=== PATIENT | female | born 1980 | race Caucasian/White ===

== ENCOUNTER 2020-01-10 16:30 | Emergency (ER) | payer MEDICAID, SELFPAY ==
[2020-01-10] VITALS (16 sets, daily range): BP systolic 98–145; BP diastolic 65–110; PULSE 55–92; RESP 12–23; TEMP 36.6; O2SAT 85–100
--- NOTE | 2020-01-10 16:30 | DI.RAD_ITS ---
EXAM: XR CHEST 2V PA LATERAL CLINICAL HISTORY: chest pain TECHNIQUE: 2D digital imaging was performed. COMPARISON: No exams were available for comparison FINDINGS: The heart is not enlarged. The lungs are clear and well expanded. No pleural effusion seen. Mediastin al contours appear intact. IMPRESSION: Normal chest. RADIATION DOSE DELIVERED: Total DLP
--- NOTE | 2020-01-10 16:30 | RT.EKG_ITS ---
APPROVED REPORT Exam: Resting ECG Patient Location: E HR:75 bpm ECG Measurements Heart Rate 75 AXIS CA 142 P 57 QRSd 86 QRS 40 QT 377 T 25 QTc 421 Conclusion Sinus rhythm...normal P axis, V-rate 60- 99
--- NOTE | 2020-01-10 16:40 | W.ED.GENAD ---
Discharge Plan Disposition Patient Disposition: HOME Condition: Stable Discharge Details Clinical Impression: Epigastric abdominal pain Primary Care Provider: Betty Bella ED Provider: Anna Pena Home Meds and New Rx's Prescriptions: New omeprazole 40 mg capsule,delayed release(DR/EC) 40 mg PO DAILY Qty: 30 RF: 0 Discharge Instructions Instructions: Epigastric Pain (ED) Additional Instructions: Take omeprazole 40 mg daily Use albuterol inhaler 2 puffs every 4 hours as needed for wheezing shortness of breath or cough Follow-up with PCP for further outpatient work-up as needed Referrals: Betty Bella, [employer]N [Primary Care Provider] - Medical Decision Making 5 days of chest pain, right sided, unlikely cardiac, EKG is NSR with no acute st segment changes. chest xray to r/o pneumothorax,pneumonia, labs r/o pancreatitis, trop negative. normal cbc. Other labs reviewed and unremarkable she is given a GI cocktail and IV Protonix as her symptoms are most likely GI. She is further given Toradol 30 mg IV and acetaminophen 1000 mg. She is a every day smoker with a history of asthma her chest x-ray is unremarkable and her lungs are clear to auscultation. I will dispense an albuterol inhaler for home use as she currently has no PCP and no inhaler at home. She will be advised to take omeprazole 40 mg daily and to follow-up with GI for possible further outpatient work-up Medical Records Medical records reviewed: Yes I reviewed the patient's medical records. Lab Data Lab results reviewed: Yes I reviewed the patient's lab results. Lab results narrative: Laboratory Tests Range/Units 01/10/20 01/10/20 01/10/20 16:42 16:42 16:42 WBC (4.4-10.8) 10^3/uL 5.80 RBC (3.93-5.22) 10^6/uL 5.05 Hgb (11.2-15.7) g/dL 15.9 H Hct (36.0-46.0) % 48.0 H MCV (80-95) fL 95.0 MCH (27.0-33.0) pg 31.5 MCHC (32.0-36.0) % 33.1 RDW (11.7-14.6) % 11.8 Plt Count (130-400) 10^3/uL 191 MPV (8.0-11.0) fL 9.9 Immature Gran % 0.2 Neutrophils % 53.8 Lymphocytes % 35.3 Monocytes % 5.0 Eosinophils % 5.0 Basophils % 0.7 Nucleated RBC % % 0 Absolute Neutrophils (1.2-6.7) 10^3/uL 3.12 Absolute Lymphocytes (1.2-3.4) 10^3/uL 2.05 Absolute Monocytes (0.1-0.8) 10^3/uL 0.29 Absolute Eosinophils (0.0-0.7) 10^3/uL 0.29 Absolute Basophils (0.0-0.2) 10^3/uL 0.04 D-Dimer (<500) ng/mlFEU 180 Sodium (136-145) mmol/L 139 Potassium (3.5-5.1) mmol/L 3.5 Chloride (98-107) mmol/L 106 Carbon Dioxide (21.0-32.0) mmol/L 27.9 Anion Gap (3-11) mmol/L 5.1 BUN (7-18) mg/dL 11 Creatinine (0.55-1.02) mg/dL 0.88 Estimated GFR/1.73 m2 (mL/min/1.73m2) >= 60.00 Glucose (74-106) mg/dL 108 H Calcium (8.5-10.1) mg/dL 8.7 Magnesium (1.8-2.4) mg/dL 2.3 Total Bilirubin (0.2-1.0) mg/dL 0.4 AST (15-37) U/L 14 L ALT (14-59) U/L 20 Alkaline Phosphatase (46-116) U/L 52 Troponin I (<0.06) ng/mL < 0.05 Total Protein (6.4-8.2) g/dL 7.2 Albumin (3.4-5.0) g/dL 3.7 Lipase (73-393) U/L 50 HPI General Date/Time Provider Initiated Documentation: 01/10/20 16:38. Information obtained by: patient. HPI Narrative: presents with 5 days of right sided chest pain, radiates up into her jaw, she appears anxious, no fever or cough, denies alcohol or drug use. did not take any over the counter. Related Data Home Medications Medication Instructions Recorded Confirmed omeprazole 40 mg PO DAILY #30 cap 01/10/20 Previous Rx's Medication Instructions Recorded omeprazole 40 mg PO DAILY #30 cap 01/10/20 Allergies Allergy/AdvReac Type Severity Reaction Status Date / Time No Known Allergies Allergy Unverified 01/10/20 16:39 General Stated Complaint: Chest Pain IBETH: 2 Review of Systems Constitutional Constitutional: Denies fever(s) Cardiovascular Cardiovascular: Reports chest pain, Denies rapid heart rate, Denies edema and Denies dyspnea Respiratory Respiratory: Reports cough, Reports pain with cough and Denies dyspnea Gastrointestinal Gastrointestinal: Denies constipation, Reports heartburn, Denies diarrhea, Denies nausea and Denies vomiting Musculoskeletal Musculoskeletal: Denies myalgias Integumentary/Breasts Skin/Breast: Denies lesions and Denies rash [facility] Social History Smoking/Tobacco Use Status: Current every day Smoking risk assessment performed?: Yes Drug use: Never Substance use type: does not use Do you feel safe at home: Yes Do you feel safe in your relationship?: Yes Exam Const General: cooperative, no acute distress, anxious and disheveled Nutritional Appearance: average body habitus Orientation: alert, awake and oriented x3 [facility] Head: normal to inspection, normocephalic and atraumatic Mouth: oral mucosae normal Chest Chest: normal inspection of the chest Resp Effort & Inspection: normal respiratory effort Auscultation: clear to auscultation bilaterally, no rhonchi and no wheezes Cardio Rate: regular rate Rhythm: regular rhythm GI Inspection: normal to inspection Palpation: soft Auscultation: normal bowel sounds Back/Spine/Pelvis Back: no CVA tenderness Skin General skin exam: no rashes or lesions noted Neuro General: patient alert, patient awake, patient oriented x3 and no focal motor deficits Extrem General: normal to inspection and full ROM Course Vital Signs Vital signs: Vital Signs Temperature 36.6 C 01/10/20 16:33 Pulse 87 01/10/20 16:33 Respiratory Rate 19 01/10/20 16:33 Blood Pressure 145/110 H 01/10/20 16:33 Pulse Oximetry 100 01/10/20 16:33 Temperature 36.6 C 01/10/20 16:33 Temperature Source Temporal Artery Scan 01/10/20 16:33 Pulse 87 01/10/20 16:33 Respiratory Rate 19 12/04/20 16:33 Blood Pressure 145/110 H 01/10/20 16:33 Blood Pressure Position Sitting 01/10/20 16:33 Pulse Oximetry 100 01/10/20 16:33 Oxygen Delivery Method Room Air 01/10/20 16:33 Oxygen Flow Rate 0 01/10/20 16:33 Pain Level 7 01/10/20 16:33
[2020-01-10] MEDS: Normal Saline 1,000 ML 1000 ML IV (16:46)
[2020-01-10] MEDS: Pantoprazole 40 MG VIAL IVP (16:50)
[2020-01-10 16:51] LABS: Abs Immature Grans 0.01 10^3/uL (0.0-0.06); Absolute Basophil Count 0.04 10^3/uL (0.0-0.2); Absolute Eosinophil Count 0.29 10^3/uL (0.0-0.7); Absolute Lymphocyte Count 2.05 10^3/uL (1.2-3.4); Absolute Monocyte Count 0.29 10^3/uL (0.1-0.8); Absolute Neutrophil Count 3.12 10^3/uL (1.2-6.7); Basophils % 0.7; HGB 15.9 g/dL (11.2-15.7); Immature Grans % 0.2; Lymphocytes % 35.3; MCH 31.5 pg (27.0-33.0); MCHC 33.1 % (32.0-36.0); MPV 9.9 fL (8.0-11.0); Neutrophils % 53.8; Nucleated RBC 0 %; Platelet Count 191 10^3/uL (130-400); RBC 5.05 10^6/uL (3.93-5.22); RDW 11.8 % (11.7-14.6); RDW-SD 41.5 fL
[2020-01-10 17:08] LABS: ALT 20 U/L (14-59); AST 14 U/L (15-37); Albumin 3.7 g/dL (3.4-5.0); Alkaline Phosphatase 52 U/L (46-116); Anion Gap 5.1 mmol/L (3-11); BUN 11 mg/dL (7-18); Bilirubin, Total 0.4 mg/dL (0.2-1.0); CO2 27.9 mmol/L (21.0-32.0); CREATININE 0.88 mg/dL (0.55-1.02); Calcium 8.7 mg/dL (8.5-10.1); Chloride 106 mmol/L (98-107); Glucose 108 mg/dL (74-106); Lipase 50 U/L (73-393); Magnesium 2.3 mg/dL (1.8-2.4); Potassium 3.5 mmol/L (3.5-5.1); Sodium 139 mmol/L (136-145); Total Protein 7.2 g/dL (6.4-8.2); Troponin I < 0.05 ng/mL (<0.06)
[2020-01-10 17:23] LABS: D-Dimer 180 ng/mlFEU (<500)
--- NOTE | 2020-01-10 17:29 | DI.VRAD_ITS ---
PROCEDURE INFORMATION: Exam: XR Chest, 2 Views Exam date and time: 01/10/2020 4:41 PM Age: 39 years old Clinical indication: Other: Chest pain TECHNIQUE: Imaging protocol: XR of the chest Views: 2 views. COMPARISON: No relevant prior studies available. FINDINGS: Lungs: The lungs are clear. There is no pulmonary vascular congestion. Pleural space: No layering pleural effusions are identified. Heart/Mediastinum: Cardiomediastinal silhouette is within normal limits. Bones/joints: There are multilevel mild degenerative changes throughout the thoracic spine. There is mild anterior wedging of a single lower thoracic vertebra which appears chronic. IMPRESSION: No active cardiopulmonary disease identified. Dictated and Authenticated by: Patrick Kumar MD. Ordering:REECE Castillo MD
[2020-01-10] MEDS: Acetaminophen 500 MG TAB 1000 MG PO (17:53)
[2020-01-10] MEDS: Albuterol HFA 8 GM 60 PUFF INH IH (17:53)
[2020-01-10] MEDS: Ketorolac 30 MG/ML VIAL IVP (17:54)
== END 2020-01-10 18:05 | disposition home or self-care (01) ==
PROVIDERS: Emergency Provider Nurse Practitioner Acute Care
DX: R10.13 Epigastric pain (principal); F17.210 Nicotine dependence, cigarettes, uncomplicated
CPT/HCPCS: 80053; 83690; 93005; 96361; 96374; 96375; 99285; 71046; 83735; 84484; 85025; 85379; 93010; J1885

== ENCOUNTER 2020-03-07 10:37 | Emergency (ER) | payer MEDICAID, SELFPAY ==
[2020-03-07 10:43] VITALS: BP 138/76; PULSE 82; RESP 20; TEMP 36.3; O2SAT 100
--- NOTE | 2020-03-07 10:52 | ED.GENADUL_ITS ---
Discharge Plan Disposition Patient Disposition: HOME Condition: Stable Discharge Details Clinical Impression: Pharyngitis Primary Care Provider: Betty Bella ED Provider: Brenda Vieira Home Meds and New Rx's Prescriptions: No Action fluticasone propion-salmeterol [Advair Diskus] 250-50 mcg/dose blister with device 1 inh inhalation BID RF: 0 vitamin B complex [B Complex-Vitamin B12] Tablet 1 tab PO DAILY RF: 0 acetaminophen [Tylenol] 325 mg tablet 650 mg PO Q6H PRNRF: 0 valacyclovir 1 gram tablet 1,000 mg PO TID RF: 0 triamcinolone acetonide 0.5 % cream 1 applic topical BID RF: 0 epinephrine 0.3 mg/0.3 mL auto-injector 0.3 mg IM ONCE RF: 0 omeprazole 40 mg capsule,delayed release(DR/EC) 40 mg PO DAILY Qty: 30 RF: 0 Discharge Instructions Instructions: Pharyngitis (ED) Additional Instructions: Gargle with warm salt water three times a day. Consider contacting Covid testing tent to be tested for Covid. Follow up with primary care provider in 3-5 days. Return to ED sooner if any worsening or concerns. Increase oral fluids. Please take Tylenol or Ibuprofen with food every 4-6 hours as needed for pain and swelling. Stand Alone Forms: Work Release Referrals: Betty Bella, [employer] REL[employer] INTERN [Primary Care Provider] - Medical Decision Making 39-year-old female presents to the ED with chief complaint of throat pain x3 days. Patient states that she has had pain swallowing, left-sided cervical lymphadenopathy, she is a smoker. She does report a nonproductive cough. Denies fever or chills. She states that she has had strep throat in the past and this feels similar. On initial exam posterior oropharynx is erythemic, tonsils are absent, no exudate noted. She is speaking in clear full sentences, lung sounds are clear bilaterally to auscultation. She has been trying [id number] cold and flu medications with little to no relief. Initial rapid strep swab negative. Due to patient's symptoms and lymphadenopathy do feel that treatment with antibiotics is appropriate at this time. Discussed pills versus injection, patient opted for IM injection. I did discuss home care including gargling with warm salt water three times a day, verbalized understanding. Patient received Bicillin 1,200,000 units IM was observed for approximately 15 to 20 minutes after injection. Discussed home care including gargling with warm salt water and taking Tylenol and ibuprofen. Patient was hemodynamically stable throughout stay. HPI General Mode of arrival: ambulatory . Date/Time Provider Initiated Documentation: 03/07/20 10:38 . Limitations to Documentation: no limitations . Information obtained by: patient . HPI Narrative: 39-year-old female presents to the ED with chief complaint of throat pain x3 days. Patient states that she has had pain swallowing, left-sided cervical lymphadenopathy, she is a smoker. She does report a nonproductive cough. Denies fever or chills. She states that she has had strep throat in the past and this feels similar. On initial exam posterior oropharynx is erythemic, tonsils are absent, no exudate noted. She is speaking in clear full sentences, lung sounds are clear bilaterally to auscultation. She has been trying [id number] cold and flu medications with little to no relief. Related Data Home Medications Medication Instructions Recorded Confirmed omeprazole 40 mg PO DAILY #30 cap 01/10/20 03/07/20 acetaminophen 325 mg tablet 650 mg PO Q6H PRN tab 02/17/20 03/07/20 fluticasone 250 mcg-salmeterol 50 1 inh INHALATION BID 02/17/20 03/07/20 mcg/dose blistr powdr for inhalation triamcinolone acetonide 0.5 % 1 applic TOPICAL BID 02/17/20 03/07/20 topical cream valacyclovir 1 gram tablet 1,000 mg PO TID 02/17/20 03/07/20 vitamin B complex 1 tab PO DAILY 02/17/20 03/07/20 epinephrine 0.3 mg/0.3 mL 0.3 mg IM ONCE 02/20/20 03/07/20 injection, auto-injector Previous Rx's Medication Instructions Recorded omeprazole 40 mg PO DAILY #30 cap 01/10/20 Allergies Allergy/AdvReac Type Severity Reaction Status Date / Time bee venom protein (honey bee) Allergy Unknown Unverified 03/07/20 10:44 cat dander Allergy Unknown Unverified 03/07/20 10:44 hornet venom Allergy Unknown Unverified 03/07/20 10:44 General Stated Complaint: Sorethroat IBETH: 4 Review of Systems Narrative: Constitutional: Negative for weight loss, alert and oriented, well groomed, normal body habitus, appears comfortable. HEENT: Denies trauma, headaches, blurry vision, nasal discharge. Positive sore throat, pain with swallowing. Chest: Denies chest pain, palpitations, irregular rhythm, hypertension. Respiratory: Denies Shortness of breath, hemoptysis. Positive nonproductive cough. GI: Denies abdominal pain, nausea, vomiting, diarrhea, constipation. : Denies dysuria, hematuria, flank pain, rectal bleeding. Neuro: Denies dizziness, blurry vision, weakness, syncope, headache or facial numbness. Hematologic: Denies easy bruising, intolerance to heat or cold, hair loss. [facility] Medical History Abdominal pain Agoraphobia Anemia Arthritis Asthma Bipolar 2 disorder Cyst of Bartholin's gland duct Depressive disorder Eustachian tube disorder Fatty liver RIOS (generalized anxiety disorder) GERD (gastroesophageal reflux disease) Hearing loss in right ear Herpes zoster (~08/01/18) History of eating disorder Joint pain Migraine Obesity Pain in both feet PTSD (post-traumatic stress disorder) Sleep disorder Urinary incontinence Surgical History H/O gastric bypass (~08/11/16) H/O hernia repair (~10/06/17) History of endometrial ablation (~02/05/13) History of eye surgery (~02/06/13) laser surgery for detached retina (L) eye History of hand surgery (~04/06/11) removal of ganglion cyst from hand: left wrist and right wrist History of liver biopsy (~08/11/16) wedge BX History of tubal ligation (~02/07/04) Hx of cholecystectomy (~10/06/17) Social History Smoking/Tobacco Use Status: Current every day Smoking risk assessment performed?: Yes Drug use: Rarely Substance use type: marijuana Do you feel safe at home: Yes Do you feel safe in your relationship?: Yes Exam Narrative Exam Narrative: Constitutional: Alert and oriented x3. Appears stated age. Normal body habitus. Head: Normocephalic, no trauma. Eyes: Pupils PERRLA, Red reflex noted, EOM's intact. Eyelids symmetrical without lesions, discharge, or swelling. ENT: Bilateral TM's WNL, External ear normal to inspection, no mastoid TTP, swelling, or erythema, Nasal turbinates WNL, no nasal discharge. Normal dentition, Posterior pharynx erythemic, no exudate visualized, positive cervical lymphadenopathy on left. Tonsils are absent. Chest: RRR, Normal S1, S2, distal pulses intact. Resp: Lungs clear to auscultation bilaterally, no wheezes, rales, or rhonchi. Musculoskeletal: Normal gait, 5/5 strength to all four extremities. Skin: No suspicious rashes or lesions. Capillary refill less than 2 sec. Neurologic: Cranial nerves II-XII intact. Alert and oriented x 3. DTR's intact. Hematologic/Lymphatic: No ecchymosis. Course Vital Signs Vital signs: Vital Signs Temperature 36.3 C L 03/07/20 10:43 Pulse 82 03/07/20 10:43 Respiratory Rate 20 03/07/20 10:43 Blood Pressure 138/76 03/07/20 10:43 Pulse Oximetry 100 03/07/20 10:43 Temperature 36.3 C L 03/07/20 10:43 Temperature Source Skin 03/07/20 10:43 Pulse 82 03/07/20 10:43 Respiratory Rate 20 03/07/20 10:43 Respiratory Effort Non-Labored 03/07/20 10:45 Blood Pressure 138/76 03/07/20 10:43 Blood Pressure Position Sitting 03/07/20 10:43 Pulse Oximetry 100 03/07/20 10:43 Oxygen Delivery Method Room Air 03/07/20 10:43 Oxygen Flow Rate 0 03/07/20 10:43 Pain Level 8 03/07/20 10:43 Lab/Test Results Lab/Test Results: 03/07/20 10:51 Tonsil - Not Specified Streptococcus Screen (EZEQUIEL) - Pending POC Strep Test-JOSEPH(Rapid) Start: 03/07/20 10:38 Freq: .Rapid Strep Test Status: Active Protocol: Document 03/07/20 10:51 TB (Rec: 03/07/20 10:51 TB [id number]) Strep test-JOSEPH(Rapid)-POC POC-Strep test-JOSEPH (Rapid) Negative POC-Strep test-JOSEPH (Rapid) Negative
[2020-03-07 11:27] VITALS: PULSE 62; RESP 18; TEMP 36.6; O2SAT 99
== END 2020-03-07 11:25 | disposition home or self-care (01) ==
PROVIDERS: Emergency Provider Registered Nurse Emergency
DX: R59.0 Localized enlarged lymph nodes (principal); J02.9 Acute pharyngitis, unspecified
CPT/HCPCS: 87880; 96372; 99284; 87081; 99283; J0561

== ENCOUNTER 2020-03-10 20:13 | Outpatient (REF) | payer MEDICAID, SELFPAY ==
[2020-03-12 14:02] LABS: COVID-19 RT-PCR UVMMC Result Negative (Negative)
== END 2020-03-10 20:14 | disposition home or self-care (01) ==
LOC: NCHCN 20:13
PROVIDERS: Visit Provider Family Medicine
DX: J02.9 Acute pharyngitis, unspecified (principal)
CPT/HCPCS: U0003; 87070

== ENCOUNTER 2020-04-18 12:11 | Emergency (ER) | payer MEDICAID, SELFPAY ==
[2020-04-18 12:22] VITALS: BP 157/97; PULSE 78; RESP 20; TEMP 36.3; O2SAT 98
--- NOTE | 2020-04-18 12:30 | RT.EKG_ITS ---
APPROVED REPORT Exam: Resting ECG Patient Location: E HR:76 bpm ECG Measurements Heart Rate 76 AXIS KS 140 P 58 QRSd 86 QRS 58 QT 394 T 31 QTc 442 Conclusion Sinus rhythm...normal P axis, V-rate 60- 99 I have reviewed and interpreted ECG and agree with software generated interpretation.
--- NOTE | 2020-04-18 12:39 | W.ED.GENAD ---
Discharge Plan Disposition Patient Disposition: HOME Condition: Stable Discharge Details Clinical Impression: Chronic sore throat, Chronic cough, Current smoker Primary Care Provider: Betty Bella ED Provider: Elva Kurtz Home Meds and New Rx's Prescriptions: New amoxicillin-pot clavulanate [Augmentin] 875-125 mg tablet 1 tab PO BID 7 Days Qty: 14 RF: 0 prednisone 20 mg tablet See Rx Instructions .ROUTE .COMPLEX Qty: 12 RF: 0 albuterol sulfate 90 mcg/actuation aerosol powdr breath activated 2 inh IH Q6H PRN (Reason: shortness of breath or wheezing) Qty: 1 RF: 0 benzonatate [Tessalon Perles] 100 mg capsule 100 mg PO TID PRN (Reason: cough) Qty: 14 RF: 0 Continued vitamin B complex [B Complex-Vitamin B12] Tablet 1 tab PO DAILY RF: 0 acetaminophen [Tylenol] 325 mg tablet 650 mg PO Q6H PRNRF: 0 epinephrine 0.3 mg/0.3 mL auto-injector 0.3 mg IM ONCE RF: 0 cholecalciferol (vitamin D3) 50 mcg (2,000 unit) capsule 50 mcg PO DAILY RF: 0 hydroxyzine pamoate [Vistaril] 25 mg capsule 25 mg PO QHS PRNRF: 0 fluticasone propion-salmeterol [Advair Diskus] 250-50 mcg/dose blister with device 1 inh inhalation BID Qty: 60 RF: 0 albuterol sulfate [ProAir HFA] 90 mcg/actuation HFA aerosol inhaler 2 puff inhalation Q6H PRN (Reason: shortness of breath or wheezing) Qty: 8.5 RF: 3 omeprazole 40 mg capsule,delayed release(DR/EC) 40 mg PO DAILY Qty: 30 RF: 0 Discharge Instructions Instructions: How to Stop Smoking (ED), Pharyngitis (ED), Chronic Cough (ED) Additional Instructions: Your chest x-ray did not show any abnormal findings. Your persistent symptoms may be due to a viral process and/or prolonged secondary to smoking. You can also have a chronic cough and sore throat from allergies or GERD. If your symptoms do not improve with the medications given today, follow-up with your primary care doctor for reevaluation and consideration for referral to an frit burner for to GI or surgery for an upper endoscopy. Drink plenty of fluids and get plenty of rest. Alternate tylenol and motrin as needed and directed for pain. Your prescriptions have been sent electronically to your pharmacy. Call the pharmacy to make sure your prescriptions are ready before pickup. Take the prescriptions as directed. Follow-up with your primary care doctor in 1 week. Return to the emergency department with any worsening or new concerning symptoms. Discharge Data Discharge Physician: Elva Kurtz Medical Decision Making 39-year-old female with a history of bipolar disorder, PTSD, GERD presents for chronic sore throat and cough for the past 2 months. She appears comfortable and nontoxic. No respiratory distress. Afebrile. Normal oxygen saturation. Rapid strep negative. Discussed with patient at length that her chronic symptoms may be related to her smoking but could also consider GERD or allergies. Also discussed that she could have an acute infection on top of her chronic symptoms. Advised that she quit smoking as this will delay her resolution of symptoms. Her lungs are clear without evidence of wheezing. Her oropharynx is minimally erythematous but without exudates. Her right anterior chest is tender to palpation and this appears more musculoskeletal. EKG done by nurse on arrival and noted a rate of 76, sinus, no STEMI, nondiagnostic. Overall suspect her presentation may be a prolonged or recurrent viral illness secondary to her smoking. Also consider another form of strep. Throat culture sent. She was also referred for chest x-ray which is negative. Considering patient's history of smoking, will treat with antibiotics and steroids. Also given albuterol inhaler and Tessalon Perles for home. Advised to follow up with the primary care doctor for re-evaluation. Usual and customary return precautions given prior to discharge. Medical Records Medical records reviewed: Yes I reviewed the patient's medical records. Imaging Data Radiologic Study: Radiologist's impression: XR Chest Exam date and time: 04/18/2020 1:11 PM Age: 39 years old Clinical indication: Other: Chronic cough, R/O acute disease TECHNIQUE: Imaging protocol: XR of the chest Views: 2 views. COMPARISON: CR XR CHEST 2V PA LATERAL 01/10/2020 5:19 PM FINDINGS: Lungs: Unremarkable. No consolidation. Pleural spaces: Unremarkable. No pleural effusion. No pneumothorax. Heart/Mediastinum: Unremarkable. No cardiomegaly. Bones/joints: Unremarkable. IMPRESSION: No acute findings. HPI General Mode of arrival: ambulatory. Date/Time Provider Initiated Documentation: 04/18/20 12:32. Limitations to Documentation: no limitations. Information obtained by: patient. HPI Narrative: Patient is a 39-year-old female with a history of bipolar disorder, PTSD, GERD who presents for chronic sore throat and cough for the past 2 months. Was diagnosed and treated with strep 2 months ago by the ED as well as her primary care doctor. She states her symptoms never fully improved and she has had continued sore throat and dry cough. She states she only has right-sided chest pain with coughing. She denies any significant shortness of breath. She states her main complaint is her sore throat that is worse with coughing. She denies any known fever, abdominal pain, recent travel or recent known sick contacts. Related Data Home Medications Medication Instructions Recorded Confirmed omeprazole 40 mg PO DAILY #30 cap 01/10/20 04/18/20 acetaminophen 325 mg tablet 650 mg PO Q6H PRN tab 02/17/20 04/18/20 vitamin B complex 1 tab PO DAILY 02/17/20 04/06/20 epinephrine 0.3 mg/0.3 mL 0.3 mg IM ONCE 02/20/20 04/18/20 injection, auto-injector albuterol sulfate 90 mcg/actuation 2 puff INHALATION Q6H PRN #8.5 g 04/06/20 04/18/20 aerosol inhaler cholecalciferol (vitamin D3) 50 50 mcg PO DAILY 04/06/20 04/06/20 mcg (2,000 unit) capsule fluticasone 250 mcg-salmeterol 50 1 inh INHALATION BID #60 ea 04/06/20 04/18/20 mcg/dose blistr powdr for inhalation hydroxyzine pamoate 25 mg capsule 25 mg PO QHS PRN 04/06/20 04/18/20 albuterol sulfate 2 inh IH Q6H PRN #1 each 04/18/20 amoxicillin-pot clavulanate 1 tab PO BID 7 Days #14 tab 04/18/20 [Augmentin] benzonatate [Tessalon Perles] 100 mg PO TID PRN #14 cap 04/18/20 prednisone See Rx Instructions .ROUTE 04/18/20 .COMPLEX #12 tab Previous Rx's Medication Instructions Recorded omeprazole 40 mg PO DAILY #30 cap 01/10/20 albuterol sulfate 90 mcg/actuation 2 puff INHALATION Q6H PRN #8.5 g 04/06/20 aerosol inhaler fluticasone 250 mcg-salmeterol 50 1 inh INHALATION BID #60 ea 04/06/20 mcg/dose blistr powdr for inhalation albuterol sulfate 2 inh IH Q6H PRN #1 each 04/18/20 amoxicillin-pot clavulanate 1 tab PO BID 7 Days #14 tab 04/18/20 [Augmentin] benzonatate [Tessalon Perles] 100 mg PO TID PRN #14 cap 04/18/20 prednisone See Rx Instructions .ROUTE 04/18/20 .COMPLEX #12 tab Allergies Allergy/AdvReac Type Severity Reaction Status Date / Time bee venom protein (honey bee) Allergy Unknown Verified 04/18/20 12:25 cat dander Allergy Unknown Verified 04/18/20 12:25 hornet venom Allergy Unknown Verified 04/18/20 12:25 General Stated Complaint: RespSymp IBETH: 4 Review of Systems All systems reviewed & are unremarkable except as noted in HPI and below Constitutional Constitutional: Reports as per HPI, Denies chills and Denies fever(s) Eyes Eyes: Denies blurry vision ENT Ears, Nose, Mouth, and Throat: Denies dizziness, Reports sore throat and Denies throat swelling Cardiovascular Cardiovascular: Reports chest pain and Denies dyspnea Respiratory Respiratory: Reports cough and Denies dyspnea Gastrointestinal Gastrointestinal: Denies abdominal pain, Denies diarrhea and Denies vomiting Genitourinary Genitourinary: Denies hematuria and Denies dysuria Musculoskeletal Musculoskeletal: Denies back pain and Denies numbness Integumentary/Breasts Skin/Breast: Denies lesions and Denies rash Neurologic Neurologic: Denies dizziness, Denies localized weakness and Denies numbness Allergic/Immunologic Allergic/Immunologic: Denies throat swelling [facility] Medical History Abdominal pain Agoraphobia Anemia Arthritis Asthma Bipolar 2 disorder Cyst of Bartholin's gland duct Depressive disorder Eustachian tube disorder Fatty liver RIOS (generalized anxiety disorder) GERD (gastroesophageal reflux disease) Hearing loss in right ear Herpes zoster (~08/01/18) History of eating disorder Joint pain Migraine Obesity Pain in both feet PTSD (post-traumatic stress disorder) Sleep disorder Urinary incontinence Surgical History H/O gastric bypass (~08/11/16) H/O hernia repair (~10/06/17) History of endometrial ablation (~02/05/13) History of eye surgery (~02/06/13) laser surgery for detached retina (L) eye History of hand surgery (~04/06/11) removal of ganglion cyst from hand: left wrist and right wrist History of liver biopsy (~08/11/16) wedge BX History of tubal ligation (~02/07/04) Hx of cholecystectomy (~10/06/17) Social History Smoking/Tobacco Use Status: Current every day Smoking risk assessment performed?: Yes Drug use: Rarely Substance use type: marijuana Do you feel safe at home: Yes Do you feel safe in your relationship?: Yes Exam Const General: cooperative, healthy appearing and no acute distress HENMT Head: normal to inspection Ears: hearing grossly normal bilaterally, external ears normal and TM's normal bilaterally General nose exam: external nose normal Mouth: oral mucosae normal Throat: uvula midline and posterior oropharynx abnormal erythema (minimal ); no edema and no exudates Eyes General: appearance normal, both eyes and all related structures Neck Neck: normal visual inspection Lymphatic: lymphadenopathy (L anterior cervical ) Chest Chest: tenderness (R anterior chest) Resp Effort & Inspection: normal respiratory effort and able to speak in complete sentences Auscultation: clear to auscultation bilaterally Cardio Rate: regular rate Rhythm: regular rhythm Skin General skin exam: no rashes or lesions noted Neuro General: patient alert, patient awake and patient oriented x3 Motor: muscle tone normal throughout Extrem General: normal to inspection and full ROM Psych Appearance: grossly normal Affect: normal affect Course Vital Signs Vital signs: Vital Signs Temperature 97.3 F L 04/18/20 12:22 Pulse 78 04/18/20 12:22 Respiratory Rate 20 04/18/20 12:22 Blood Pressure 157/97 H 04/18/20 12:22 Pulse Oximetry 98 04/18/20 12:22 Temperature 97.3 F L 04/18/20 12:22 Temperature Source Skin 04/18/20 12:22 Pulse 78 04/18/20 12:22 Respiratory Rate 20 04/18/20 12:22 Respiratory Effort Non-Labored 04/18/20 12:29 Blood Pressure 157/97 H 04/18/20 12:22 Blood Pressure Position Sitting 04/18/20 12:22 Pulse Oximetry 98 04/18/20 12:22 Oxygen Delivery Method Room Air 04/18/20 12:22 Oxygen Flow Rate 0 04/18/20 12:22 Pain Level 9 04/18/20 12:22
--- NOTE | 2020-04-18 13:00 | DI.RAD_ITS ---
EXAM: XR CHEST 2V PA LATERAL CLINICAL HISTORY: chronic cough, r/o acute disease TECHNIQUE: 2D digital imaging was performed. COMPARISON: CR,XR XR CHEST 2V PA LATERAL from 01/10/2020 FINDINGS: The heart is not enlarged. The lungs are clear and well expanded. No pleural effusion seen. Mediastin al contours appear intact. IMPRESSION: Normal chest. RADIATION DOSE DELIVERED: Total DLP
[2020-04-18] MEDS: predniSONE 20 MG TAB 60 MG PO (13:44)
[2020-04-18] MEDS: Ketorolac 60 MG/2 ML VIAL IM (13:45)
[2020-04-18] MEDS: Albuterol/Ipratropium 3 ML UPD VIAL UPD (13:46)
--- NOTE | 2020-04-18 14:09 | DI.VRAD_ITS ---
PROCEDURE INFORMATION: Exam: XR Chest Exam date and time: 04/18/2020 1:11 PM Age: 39 years old Clinical indication: Other: Chronic cough, R/O acute disease TECHNIQUE: Imaging protocol: XR of the chest Views: 2 views. COMPARISON: CR XR CHEST 2V PA LATERAL 01/10/2020 5:19 PM FINDINGS: Lungs: Unremarkable. No consolidation. Pleural spaces: Unremarkable. No pleural effusion. No pneumothorax. Heart/Mediastinum: Unremarkable. No cardiomegaly. Bones/joints: Unremarkable. IMPRESSION: No acute findings. Dictated and Authenticated by: Pilo Gilmore MD. Ordering:LORIE Stevenson MD
[2020-04-18 14:43] VITALS: BP 120/66; PULSE 60; RESP 16; TEMP 36.5; O2SAT 97
== END 2020-04-18 14:57 | disposition home or self-care (01) ==
PROVIDERS: Emergency Provider Physician Assistant
DX: J31.2 Chronic pharyngitis (principal); R05 Cough; F17.210 Nicotine dependence, cigarettes, uncomplicated; R07.81 Pleurodynia
CPT/HCPCS: 87880; 93005; 94640; 96372; 99284; 71046; 87081; 93010; J1885; J7512; J7620

== ENCOUNTER 2020-04-21 22:22 | Outpatient (REF) | payer MEDICAID, SELFPAY ==
[2020-04-21 21:15] LABS: Abs Immature Grans 0.03 10^3/uL (0.0-0.06); Absolute Basophil Count 0.02 10^3/uL (0.0-0.2); Absolute Lymphocyte Count 1.48 10^3/uL (1.2-3.4); Absolute Monocyte Count 0.33 10^3/uL (0.1-0.8); Basophils % 0.2; HCT 44.6 % (36.0-46.0); HGB 14.7 g/dL (11.2-15.7); Immature Grans % 0.3; Lymphocytes % 16.9; MCH 32.2 pg (27.0-33.0); MCV 97.8 fL (80-95); MPV 10.4 fL (8.0-11.0); Monocytes % 3.8; Neutrophils % 78.8; Nucleated RBC 0 %; Platelet Count 239 10^3/uL (130-400); RBC 4.56 10^6/uL (3.93-5.22); RDW 12.4 % (11.7-14.6); RDW-SD 44.6 fL; WBC 8.76 10^3/uL (4.4-10.8)
[2020-04-21 21:26] LABS: Mono Screening Negative (Negative)
[2020-04-23 13:16] LABS: COVID-19 RT-PCR UVMMC Result Negative (Negative)
== END 2020-04-21 22:23 | disposition home or self-care (01) ==
LOC: LBN 22:22
PROVIDERS: Visit Provider Nurse Practitioner Family
DX: J02.9 Acute pharyngitis, unspecified (principal); R59.0 Localized enlarged lymph nodes; Z20.822 Contact with and (suspected) exposure to COVID-19
CPT/HCPCS: U0003; 85025; 86308

== ENCOUNTER 2020-05-07 02:17 | Outpatient (CLI) | payer MEDICAID, SELFPAY ==
--- NOTE | 2020-05-07 08:15 | DI.US_ITS ---
EXAM: US SOFT TISSUE HEAD OR NECK CLINICAL HISTORY: enlarged lymph nodes, R59.0, CERVICAL LYMPHADENOPATHY. TECHNIQUE: Ultrasound was performed using standard protocol. COMPARISON: No exams were available for comparison FINDINGS: Sonographic assessment utilizing grayscale and color Doppler imaging was performed and targeted to th e area of clinical concern. Images submitted are of the left side of the neck. There are multiple slightly prominent lymph nodes in the area of concern. Largest of these measures 2.4 cm x 0.5 cm x 1.7 cm. Cortical thickness of these lymph nodes is upper normal. No abnormal flu id collection. IMPRESSION: Multiple slightly lymph nodes in left side of the neck. There are no images of the right-side of the neck. DATA REPOSITORY:
== END 2020-05-07 02:37 ==
PROVIDERS: Visit Provider Nurse Practitioner Family
DX: R59.0 Localized enlarged lymph nodes (principal)
CPT/HCPCS: 76536

== ENCOUNTER 2020-05-18 02:37 | Outpatient (CLI) | payer MEDICAID, SELFPAY ==
--- NOTE | 2020-05-18 12:22 | DI.MAMMO_ITS ---
EXAM: MG MAMMO SCREENING CLINICAL HISTORY: screening,Z12.39. TECHNIQUE: Bilateral full field digital CC and MLO mammographic images were obtained with 3D tomosyn thesis and utilizing computer aided detection (CAD). COMPARISON: None. This is a baseline mammogram on a 39-year-old patient. FINDINGS: There are scattered benign-appearing microcalcifications in both breasts. There are no new spiculated masses nor malignant appearing microcalcification groups. There is no significant architectural distortion nor skin thickening-retraction. IMPRESSION: Benign findings. No radiographic evidence of malignancy. BI-RADS Category 2 - Benign Findings Breast Density - Category B - Scattered areas of fibroglandular density Breast density Category C or D implies that the patient has dense breast tissue. Dense breast tissue can make it harder to find cancer on a mammogram. Dense breast tissue is also associated with an incr eased risk of breast cancer. This information about the result of the mammogram report was provided to the patient to raise their awareness. Use this report when you speak with the patient about their risks for breast cancer, which includes their family history. At that time, you may recommend additional screening tests (Ultrasoun d or MRI) as these tests may add significant information. A negative radiographic report should not delay biopsy if a dominant or clinically suspicious mass is present. Up to ten percent of cancers are not identified on mammography. A negative report may reinforce clinical impression. Adenosis and dense breasts may obscure an underlying neoplasm. False positive reports average 6 to 10%. Patient will receive a letter notifying them of these results.
== END 2020-05-18 02:57 ==
DX: Z12.31 Encounter for screening mammogram for malignant neoplasm of breast (principal)
CPT/HCPCS: 77063; 77067

== ENCOUNTER 2020-06-19 03:58 | Outpatient (CLI) | payer MEDICAID, SELFPAY ==
[2020-06-19 11:57] LABS: Abs Immature Grans 0.01 10^3/uL (0.0-0.06); Absolute Basophil Count 0.04 10^3/uL (0.0-0.2); Absolute Eosinophil Count 0.35 10^3/uL (0.0-0.7); Absolute Lymphocyte Count 2.12 10^3/uL (1.2-3.4); Absolute Monocyte Count 0.35 10^3/uL (0.1-0.8); Basophils % 0.6; Eosinophils % 5.7; HCT 46.4 % (36.0-46.0); HGB 15.3 g/dL (11.2-15.7); Immature Grans % 0.2; Lymphocytes % 34.4; MCH 32.3 pg (27.0-33.0); MCV 98.1 fL (80-95); MPV 9.8 fL (8.0-11.0); Monocytes % 5.7; Neutrophils % 53.4; Nucleated RBC 0 %; Platelet Count 194 10^3/uL (130-400); RBC 4.73 10^6/uL (3.93-5.22); RDW 11.9 % (11.7-14.6); RDW-SD 43.3 fL; WBC 6.17 10^3/uL (4.4-10.8)
[2020-06-19 12:13] LABS: TSH (W/Ref FT4) 1.15 uIU/mL (0.36-3.74)
[2020-06-19 12:28] LABS: ALT 29 U/L (14-59); AST 15 U/L (15-37); Albumin 3.5 g/dL (3.4-5.0); Alkaline Phosphatase 47 U/L (46-116); Anion Gap 7.4 mmol/L (3-11); BUN 21 mg/dL (7-18); Bilirubin, Total 0.4 mg/dL (0.2-1.0); CO2 27.6 mmol/L (21.0-32.0); CREATININE 0.7 mg/dL (0.55-1.02); Calcium 8.2 mg/dL (8.5-10.1); Calculated LDL 72 mg/dL (<100); Chloride 107 mmol/L (98-107); Cholesterol 142 mg/dL (<200); Glucose 83 mg/dL (74-106); HDL Cholesterol 61 mg/dL (40-60); Potassium 3.8 mmol/L (3.5-5.1); Sodium 142 mmol/L (136-145); Total Protein 6.9 g/dL (6.4-8.2); Triglyceride 46 mg/dL (<150); Vitamin B12 265 pg/mL (193-986)
[2020-06-22 05:43] LABS: Vitamin D 25 Total 10.6 ng/mL (30-100)
== END 2020-06-19 03:59 | disposition home or self-care (01) ==
LOC: LBO 03:58
PROVIDERS: Visit Provider Otolaryngology Otolaryngology/Facial Plastic Surgery
DX: R59.1 Generalized enlarged lymph nodes (principal); R13.12 Dysphagia, oropharyngeal phase
CPT/HCPCS: 36415; 80053; 80061; 82306; 82607; 84443; 85025